=== PATIENT | female | born 1945 | race Caucasian/White ===

== ENCOUNTER 2016-12-22 19:34 | Inpatient (IN) | payer MEDICARE, OTHER ==
[~2016-12-22] VITALS: Ht 165.1 cm; Wt 56.4 kg
[~2016-12-22 19:34] MED LIST: ADVAIR 500-501 EACH INH; BUSPIRONE HCL5 MG PO; CELEXA20 MG PO; DEXILANT30 MG PO; ELAVIL25 MG PO; FLAGYL500 MG PO; GLUCOPHAGE500 MG PO; HYDROCODON-ACE1 EAC2 PO; LEVAQUIN500 MG PO; LIPITOR10 MG PO; MAGNESIUM OXID400 MG PO; MELOXICAM15 MG PO; NEURONTIN600 MG PO; NICODERM 21MG PA1 EA TD; SEROQUEL50 MG PO; SYNTHROID25 MCG PO
[2016-12-22 21:35] LABS: BASO % 0.3 % (0.1-1.2); EOS % 0.5 % (0.7-5.8); GRAN # 3.7 10_X3_uL (1.6-6.1); HEMATOCRIT 30.7 % (34-45); HEMOGLOBIN 10.3 g/dL (11.2-15.7); LYMPH # 0.2 10_X3_uL (1.2-3.7); LYMPH % 5.9 % (19.3-51.7); MEAN CORPUSCULAR HEMOGLOBIN 30.2 pg (27.0-33.0); MEAN CORPUSCULAR HGB CONC 33.6 g/dL (32.0-36.0); MEAN PLATELET VOLUME 10.2 fl (7.5-11.5); MONO % 0.3 % (4.7-12.5); PLATELET COUNT 95 x10_3/uL (182-369); RED BLOOD COUNT 3.41 x10_6/uL (3.9-5.2); RED CELL DISTRIBUTION WIDTH 19.1 % (11.7-14.4); WHITE BLOOD COUNT 3.9 x10_3/uL (4.0-10.0)
[2016-12-22 21:54] LABS: ALBUMIN 3.2 gm/dL (3.4-5.0); ALKALINE PHOSPHATASE 60 U/L (50-136); ALT/SGPT 14 U/L (3.5-33.9); AST/SGOT 9 U/L (7.04-26.96); BLOOD UREA NITROGEN 27 mg/dL (7-18); CALCIUM 8.3 mg/dL (8.7-10.7); CARBON DIOXIDE 23 mmol/L (21-32); CREATININE 0.7 mg/dL (0.6-1.3); GLUCOSE,RANDOM 224 mg/dL (70-99); SODIUM 133 mmol/L (136-145); TOTAL PROTEIN 5.5 gm/dL (6.4-8.2)
[2016-12-23 00:13] LABS: URINE BILIRUBIN NEGATIVE (NEGATIVE); URINE BLOOD NEGATIVE (NEGATIVE); URINE GLUCOSE (UA) 100 mg/dL (NORMAL); URINE KETONE NEGATIVE (NEGATIVE); URINE LEUKOCYTE ESTERASE TRACE (NEGATIVE); URINE NITRATE NEGATIVE (NEGATIVE); URINE PROTEIN 1+ (NEGATIVE); UROBILINOGEN NORMAL mg/dL (<1.0)
[2016-12-23 00:21] LABS: URINE RBC 0-5 /[HPF] (0-2); URINE WBC 0-5 /[HPF] (0-5)
[2016-12-23 04:41] LABS: BASO % 0.4 % (0.1-1.2); EOS % 1.5 % (0.7-5.8); GRAN # 2.4 10_X3_uL (1.6-6.1); GRAN % 86.4 % (34.0-71.1); HEMATOCRIT 27.4 % (34-45); HEMOGLOBIN 9.1 g/dL (11.2-15.7); LYMPH # 0.3 10_X3_uL (1.2-3.7); LYMPH % 11.3 % (19.3-51.7); MEAN CORPUSCULAR HEMOGLOBIN 29.8 pg (27.0-33.0); MEAN CORPUSCULAR HGB CONC 33.2 g/dL (32.0-36.0); MEAN CORPUSCULAR VOLUME 89.8 fL (79-95); MEAN PLATELET VOLUME 10.2 fl (7.5-11.5); MONO % 0.4 % (4.7-12.5); PLATELET COUNT 80 x10_3/uL (182-369); RED BLOOD COUNT 3.05 x10_6/uL (3.9-5.2); RED CELL DISTRIBUTION WIDTH 19.2 % (11.7-14.4); WHITE BLOOD COUNT 2.8 x10_3/uL (4.0-10.0)
[2016-12-23 04:53] LABS: CALCIUM 8.3 mg/dL (8.7-10.7); CARBON DIOXIDE 23 mmol/L (21-32); CREATININE 0.5 mg/dL (0.6-1.3); GLUCOSE,RANDOM 165 mg/dL (70-99); POTASSIUM 4.2 mmol/L (3.5-5.1); SODIUM 139 mmol/L (136-145)
[2016-12-23 04:56] LABS: BLOOD UREA NITROGEN 20 mg/dL (7-18)
[2016-12-24 06:37] LABS: BLOOD UREA NITROGEN 17 mg/dL (7-18); CALCIUM 8.4 mg/dL (8.7-10.7); CARBON DIOXIDE 23 mmol/L (21-32); CREATININE 0.6 mg/dL (0.6-1.3); GLUCOSE,RANDOM 134 mg/dL (70-99); SODIUM 138 mmol/L (136-145)
[2016-12-24 06:44] LABS: POTASSIUM 4.1 mmol/L (3.5-5.1)
[2016-12-24 06:48] LABS: HEMATOCRIT 27.3 % (34-45); HEMOGLOBIN 9.1 g/dL (11.2-15.7); MEAN CORPUSCULAR HEMOGLOBIN 30.2 pg (27.0-33.0); MEAN CORPUSCULAR HGB CONC 33.3 g/dL (32.0-36.0); MEAN CORPUSCULAR VOLUME 90.7 fL (79-95); MEAN PLATELET VOLUME 10.4 fl (7.5-11.5); PLATELET COUNT 45 x10_3/uL (182-369); RED BLOOD COUNT 3.01 x10_6/uL (3.9-5.2)
[2016-12-24 06:58] LABS: WHITE BLOOD COUNT < 1.0 x10_3/uL (4.0-10.0)
[2016-12-24 12:35] LABS: FOLATE 10.01 ng/mL (3.17-24.25)
[2016-12-24 13:15] LABS: URINE BILIRUBIN NEGATIVE (NEGATIVE); URINE BLOOD NEGATIVE (NEGATIVE); URINE GLUCOSE (UA) NORMAL (NORMAL); URINE KETONE NEGATIVE (NEGATIVE); URINE LEUKOCYTE ESTERASE NEGATIVE (NEGATIVE); URINE NITRATE NEGATIVE (NEGATIVE); URINE PROTEIN TRACE (NEGATIVE); UROBILINOGEN NORMAL mg/dL (<1.0)
[2016-12-24 13:37] LABS: URINE BACTERIA TRACE (NONE SEEN); URINE SQUAMOUS EPITHELIAL CELL 0-10 /[HPF] (NONE SEEN); URINE WBC 0-5 /[HPF] (0-5)
[2016-12-25 06:49] LABS: EOS % 4.8 % (0.7-5.8); GRAN % 9.4 % (34.0-71.1); HEMATOCRIT 24.5 % (34-45); HEMOGLOBIN 8.1 g/dL (11.2-15.7); LYMPH # 0.2 10_X3_uL (1.2-3.7); MEAN CORPUSCULAR HEMOGLOBIN 29.5 pg (27.0-33.0); MEAN CORPUSCULAR HGB CONC 33.1 g/dL (32.0-36.0); MEAN CORPUSCULAR VOLUME 89.1 fL (79-95); MEAN PLATELET VOLUME 10.5 fl (7.5-11.5); MONO % 4.8 % (4.7-12.5); RED BLOOD COUNT 2.75 x10_6/uL (3.9-5.2); RED CELL DISTRIBUTION WIDTH 18.5 % (11.7-14.4)
[2016-12-25 07:10] LABS: BLOOD UREA NITROGEN 15 mg/dL (7-18); CALCIUM 8.2 mg/dL (8.7-10.7); CARBON DIOXIDE 20 mmol/L (21-32); CREATININE 0.6 mg/dL (0.6-1.3); GLUCOSE,RANDOM 176 mg/dL (70-99); POTASSIUM 4.3 mmol/L (3.5-5.1); SODIUM 134 mmol/L (136-145)
[2016-12-25 07:38] LABS: WHITE BLOOD COUNT < 1.0 x10_3/uL (4.0-10.0)
[2016-12-25 07:42] LABS: PLATELET COUNT 22 x10_3/uL (182-369)
== END 2016-12-25 12:25 | disposition short-term general hospital (02) | DRG 871 ==
LOC: ER 19:34 → MS 12-23 01:32
PROVIDERS: Emergency Medicine; Family Medicine; ADMIT Family Medicine
DX: A41.9 Sepsis, unspecified organism (principal); J18.9 Pneumonia, unspecified organism; J44.0 Chronic obstructive pulmonary disease with (acute) lower respiratory infection; D61.818 Other pancytopenia; E87.6 Hypokalemia; E86.0 Dehydration; I95.9 Hypotension, unspecified; Z85.118 Personal history of other malignant neoplasm of bronchus and lung; Z90.2 Acquired absence of lung [part of]; D70.9 Neutropenia, unspecified; D72.829 Elevated white blood cell count, unspecified; R53.1 Weakness; R11.0 Nausea; R06.02 Shortness of breath; Z79.891 Long term (current) use of opiate analgesic; Z79.899 Other long term (current) drug therapy; Z88.0 Allergy status to penicillin; Z88.1 Allergy status to other antibiotic agents; Z88.2 Allergy status to sulfonamides; F17.210 Nicotine dependence, cigarettes, uncomplicated; Z90.710 Acquired absence of both cervix and uterus; D89.9 Disorder involving the immune mechanism, unspecified
CPT/HCPCS: 36415; 71010; 71250; 80048; 80053; 80061; 81001; 82607; 82746; 82962; 83036; 83605; 85025; 86738; 87040; 87400; 87449; 94640; 94664; 96361; 96365; 99070; 99284; 99285-25; J7050

== ENCOUNTER → 2016-12-22 19:34 | Emergency (ER) | payer MEDICARE, OTHER | END | disposition other institution (70) | LOC: ER 19:34 | DX: I95.9 Hypotension, unspecified (principal); E86.0 Dehydration; D89.9 Disorder involving the immune mechanism, unspecified; R00.0 Tachycardia, unspecified; J44.9 Chronic obstructive pulmonary disease, unspecified; K21.9 Gastro-esophageal reflux disease without esophagitis; F32.9 Major depressive disorder, single episode, unspecified; F41.9 Anxiety disorder, unspecified; Z85.118 Personal history of other malignant neoplasm of bronchus and lung; Z90.2 Acquired absence of lung [part of]; F17.210 Nicotine dependence, cigarettes, uncomplicated; Z88.0 Allergy status to penicillin; Z88.2 Allergy status to sulfonamides; Z88.1 Allergy status to other antibiotic agents | CPT/HCPCS: 36415; 71010; 80053; 83605; 85025; 96361; 96365; 99284; 99285-25 ==

== ENCOUNTER 2017-01-03 10:08 | Emergency (ER) | payer MEDICARE, OTHER ==
[2017-01-03 12:11] LABS: BASO % 0.3 % (0.1-1.2); EOS % 0.1 % (0.7-5.8); GRAN # 5.6 10_X3_uL (1.6-6.1); GRAN % 78.5 % (34.0-71.1); HEMATOCRIT 24.4 % (34-45); LYMPH # 0.7 10_X3_uL (1.2-3.7); LYMPH % 9.6 % (19.3-51.7); MEAN CORPUSCULAR HEMOGLOBIN 29.7 pg (27.0-33.0); MEAN CORPUSCULAR HGB CONC 32.8 g/dL (32.0-36.0); MEAN CORPUSCULAR VOLUME 90.7 fL (79-95); MEAN PLATELET VOLUME 10.8 fl (7.5-11.5); MONO # 0.8 10_X3_uL (0.2-0.9); MONO % 11.5 % (4.7-12.5); PLATELET COUNT 82 x10_3/uL (182-369); RED BLOOD COUNT 2.69 x10_6/uL (3.9-5.2); RED CELL DISTRIBUTION WIDTH 19.2 % (11.7-14.4); WHITE BLOOD COUNT 7.1 x10_3/uL (4.0-10.0)
[2017-01-03 12:21] LABS: ALBUMIN 2.5 gm/dL (3.4-5.0); ALKALINE PHOSPHATASE 83 U/L (50-136); ALT/SGPT 13 U/L (3.5-33.9); AST/SGOT 9 U/L (7.04-26.96); BLOOD UREA NITROGEN 14 mg/dL (7-18); CALCIUM 7.6 mg/dL (8.7-10.7); CARBON DIOXIDE 24 mmol/L (21-32); CREATININE 0.6 mg/dL (0.6-1.3); GLUCOSE,RANDOM 203 mg/dL (70-99); POTASSIUM 3.8 mmol/L (3.5-5.1); SODIUM 140 mmol/L (136-145)
[2017-01-03 12:25] LABS: BILIRUBIN,TOTAL < 0.15 mg/dL (0.0-1.0)
== END 2017-01-03 13:47 | disposition home or self-care (01) ==
LOC: ER 10:08
PROVIDERS: Emergency Medicine
DX: C34.90 Malignant neoplasm of unspecified part of unspecified bronchus or lung (principal); D63.0 Anemia in neoplastic disease; E86.0 Dehydration; J44.9 Chronic obstructive pulmonary disease, unspecified; I10 Essential (primary) hypertension; Z90.710 Acquired absence of both cervix and uterus; Z90.2 Acquired absence of lung [part of]; E89.0 Postprocedural hypothyroidism; F17.210 Nicotine dependence, cigarettes, uncomplicated; Z79.899 Other long term (current) drug therapy; Z88.0 Allergy status to penicillin; Z88.1 Allergy status to other antibiotic agents; Z88.2 Allergy status to sulfonamides
CPT/HCPCS: 36415; 80053; 85025; 96360; 99070; 99284; 99285-25

== ENCOUNTER 2017-02-09 10:35 | Inpatient (IN) | payer MEDICARE, OTHER ==
[~2017-02-09] VITALS: Ht 165.1 cm; Wt 57.0 kg
[2017-02-09 11:47] LABS: BASO % 0.3 % (0.1-1.2); EOS # 0.2 10_X3_uL (0.0-0.4); EOS % 1.8 % (0.7-5.8); GRAN # 7.9 10_X3_uL (1.6-6.1); GRAN % 75.5 % (34.0-71.1); HEMATOCRIT 38.8 % (34-45); HEMOGLOBIN 12.9 g/dL (11.2-15.7); LYMPH # 1.2 10_X3_uL (1.2-3.7); LYMPH % 11.7 % (19.3-51.7); MEAN CORPUSCULAR HEMOGLOBIN 33.7 pg (27.0-33.0); MEAN CORPUSCULAR HGB CONC 33.2 g/dL (32.0-36.0); MEAN CORPUSCULAR VOLUME 101.3 fL (79-95); MEAN PLATELET VOLUME 9.7 fl (7.5-11.5); MONO # 1.1 10_X3_uL (0.2-0.9); MONO % 10.7 % (4.7-12.5); PLATELET COUNT 254 x10_3/uL (182-369); RED BLOOD COUNT 3.83 x10_6/uL (3.9-5.2); RED CELL DISTRIBUTION WIDTH 15.9 % (11.7-14.4); WHITE BLOOD COUNT 10.5 x10_3/uL (4.0-10.0)
[2017-02-09 12:03] LABS: ALKALINE PHOSPHATASE 60 U/L (50-136); ALT/SGPT 17 U/L (3.5-33.9); AST/SGOT 15 U/L (7.04-26.96); BILIRUBIN,TOTAL 0.24 mg/dL (0.0-1.0); BLOOD UREA NITROGEN 10 mg/dL (7-18); CALCIUM 9.6 mg/dL (8.7-10.7); CARBON DIOXIDE 24 mmol/L (21-32); CREATININE 0.5 mg/dL (0.6-1.3); GLUCOSE,RANDOM 141 mg/dL (70-99); POTASSIUM 3.8 mmol/L (3.5-5.1); SODIUM 141 mmol/L (136-145); TOTAL PROTEIN 7.1 gm/dL (6.4-8.2)
[2017-02-10 07:06] LABS: BASO % 0.4 % (0.1-1.2); EOS # 0.2 10_X3_uL (0.0-0.4); EOS % 3.3 % (0.7-5.8); GRAN # 4.4 10_X3_uL (1.6-6.1); GRAN % 64.7 % (34.0-71.1); HEMATOCRIT 36.3 % (34-45); HEMOGLOBIN 12.1 g/dL (11.2-15.7); LYMPH % 15.5 % (19.3-51.7); MEAN CORPUSCULAR HEMOGLOBIN 33.9 pg (27.0-33.0); MEAN CORPUSCULAR HGB CONC 33.3 g/dL (32.0-36.0); MEAN CORPUSCULAR VOLUME 101.7 fL (79-95); MEAN PLATELET VOLUME 9.8 fl (7.5-11.5); MONO # 1.1 10_X3_uL (0.2-0.9); MONO % 16.1 % (4.7-12.5); PLATELET COUNT 236 x10_3/uL (182-369); RED BLOOD COUNT 3.57 x10_6/uL (3.9-5.2); WHITE BLOOD COUNT 6.7 x10_3/uL (4.0-10.0)
[2017-02-10 07:19] LABS: BLOOD UREA NITROGEN 12 mg/dL (7-18); CALCIUM 9.6 mg/dL (8.7-10.7); CARBON DIOXIDE 25 mmol/L (21-32); CREATININE 0.5 mg/dL (0.6-1.3); GLUCOSE,RANDOM 126 mg/dL (70-99); POTASSIUM 4.3 mmol/L (3.5-5.1); SODIUM 141 mmol/L (136-145)
[2017-02-11 07:17] LABS: HEMATOCRIT 32.6 % (34-45); HEMOGLOBIN 10.8 g/dL (11.2-15.7); MEAN CORPUSCULAR HEMOGLOBIN 32.3 pg (27.0-33.0); MEAN CORPUSCULAR HGB CONC 33.1 g/dL (32.0-36.0); MEAN CORPUSCULAR VOLUME 97.6 fL (79-95); MEAN PLATELET VOLUME 9.7 fl (7.5-11.5); RED BLOOD COUNT 3.34 x10_6/uL (3.9-5.2); RED CELL DISTRIBUTION WIDTH 15.9 % (11.7-14.4); WHITE BLOOD COUNT 6.2 x10_3/uL (4.0-10.0)
[2017-02-11 07:28] LABS: BLOOD UREA NITROGEN 12 mg/dL (7-18); CALCIUM 9.1 mg/dL (8.7-10.7); CARBON DIOXIDE 28 mmol/L (21-32); CREATININE 0.5 mg/dL (0.6-1.3); GLUCOSE,RANDOM 109 mg/dL (70-99); POTASSIUM 4.2 mmol/L (3.5-5.1); SODIUM 143 mmol/L (136-145)
[2017-02-12 06:33] LABS: HEMOGLOBIN 10.9 g/dL (11.2-15.7); MEAN CORPUSCULAR HEMOGLOBIN 32.8 pg (27.0-33.0); MEAN CORPUSCULAR HGB CONC 32.1 g/dL (32.0-36.0); MEAN CORPUSCULAR VOLUME 102.4 fL (79-95); MEAN PLATELET VOLUME 9.9 fl (7.5-11.5); RED BLOOD COUNT 3.32 x10_6/uL (3.9-5.2); RED CELL DISTRIBUTION WIDTH 15.3 % (11.7-14.4); WHITE BLOOD COUNT 6.7 x10_3/uL (4.0-10.0)
[2017-02-12 06:42] LABS: BLOOD UREA NITROGEN 12 mg/dL (7-18); CARBON DIOXIDE 25 mmol/L (21-32); CREATININE 0.6 mg/dL (0.6-1.3); GLUCOSE,RANDOM 155 mg/dL (70-99); POTASSIUM 4.2 mmol/L (3.5-5.1); SODIUM 141 mmol/L (136-145)
== END 2017-02-13 10:33 | disposition home or self-care (01) | DRG 190 ==
LOC: ER 10:35 → MS 15:04 → UNDODEPER 02-11 12:27 → MS 02-13 10:33
PROVIDERS: Emergency Medicine; ADMIT Family Medicine
DX: J44.0 Chronic obstructive pulmonary disease with (acute) lower respiratory infection (principal); J18.0 Bronchopneumonia, unspecified organism; J44.1 Chronic obstructive pulmonary disease with (acute) exacerbation; Z85.118 Personal history of other malignant neoplasm of bronchus and lung; Z90.2 Acquired absence of lung [part of]; E11.9 Type 2 diabetes mellitus without complications; J98.01 Acute bronchospasm; R91.1 Solitary pulmonary nodule; E03.9 Hypothyroidism, unspecified; R10.9 Unspecified abdominal pain; F17.210 Nicotine dependence, cigarettes, uncomplicated; Z88.0 Allergy status to penicillin; Z88.1 Allergy status to other antibiotic agents; Z88.2 Allergy status to sulfonamides; Z90.710 Acquired absence of both cervix and uterus; Z79.891 Long term (current) use of opiate analgesic; Z79.899 Other long term (current) drug therapy; Z79.84 Long term (current) use of oral hypoglycemic drugs
CPT/HCPCS: 36415; 71250; 80048; 80053; 80061; 82962; 83036; 83880; 85025; 86738; 87040; 87070; 87205; 87449; 94640; 94664; 96365; 96366; 96367; 99070; 99284; 99285-25; J2930; J7050

== ENCOUNTER 2017-02-09 10:35 | Emergency (ER) | payer MEDICARE, OTHER | END 2017-02-09 15:04 | disposition other institution (70) | LOC: ER 10:35 | DX: J44.0 Chronic obstructive pulmonary disease with (acute) lower respiratory infection (principal); J18.9 Pneumonia, unspecified organism; E03.9 Hypothyroidism, unspecified; Z85.118 Personal history of other malignant neoplasm of bronchus and lung; Z90.710 Acquired absence of both cervix and uterus; F17.210 Nicotine dependence, cigarettes, uncomplicated; E11.9 Type 2 diabetes mellitus without complications; Z79.84 Long term (current) use of oral hypoglycemic drugs; Z79.891 Long term (current) use of opiate analgesic; Z79.899 Other long term (current) drug therapy; Z99.81 Dependence on supplemental oxygen | CPT/HCPCS: 99284; 99285-25 ==

== ENCOUNTER 2017-02-21 13:48 | Emergency (ER) | payer MEDICARE, OTHER ==
[2017-02-21 16:18] LABS: BASO % 0.2 % (0.1-1.2); EOS % 0.1 % (0.7-5.8); GRAN # 11.8 10_X3_uL (1.6-6.1); GRAN % 85.3 % (34.0-71.1); HEMATOCRIT 40.8 % (34-45); HEMOGLOBIN 13.8 g/dL (11.2-15.7); LYMPH % 6.9 % (19.3-51.7); MEAN CORPUSCULAR HEMOGLOBIN 32.9 pg (27.0-33.0); MEAN CORPUSCULAR HGB CONC 33.8 g/dL (32.0-36.0); MEAN CORPUSCULAR VOLUME 97.1 fL (79-95); MEAN PLATELET VOLUME 9.8 fl (7.5-11.5); MONO % 7.5 % (4.7-12.5); PLATELET COUNT 295 x10_3/uL (182-369); RED CELL DISTRIBUTION WIDTH 14.4 % (11.7-14.4); WHITE BLOOD COUNT 13.8 x10_3/uL (4.0-10.0)
[2017-02-21 16:34] LABS: ALBUMIN 3.8 gm/dL (3.4-5.0); ALKALINE PHOSPHATASE 54 U/L (50-136); ALT/SGPT 17 U/L (3.5-33.9); AST/SGOT 11 U/L (7.04-26.96); BILIRUBIN,TOTAL 0.16 mg/dL (0.0-1.0); BLOOD UREA NITROGEN 21 mg/dL (7-18); CALCIUM 9.4 mg/dL (8.7-10.7); CARBON DIOXIDE 21 mmol/L (21-32); CREATININE 0.7 mg/dL (0.6-1.3); GLUCOSE,RANDOM 254 mg/dL (70-99); POTASSIUM 3.5 mmol/L (3.5-5.1); SODIUM 136 mmol/L (136-145); TOTAL PROTEIN 6.2 gm/dL (6.4-8.2)
== END 2017-02-21 19:29 | disposition home or self-care (01) ==
LOC: ER 13:48
PROVIDERS: Emergency Medicine
DX: E86.0 Dehydration (principal); M54.5 Low back pain; E11.9 Type 2 diabetes mellitus without complications; J44.9 Chronic obstructive pulmonary disease, unspecified; I10 Essential (primary) hypertension; Z85.118 Personal history of other malignant neoplasm of bronchus and lung; E03.9 Hypothyroidism, unspecified; Z92.21 Personal history of antineoplastic chemotherapy; Z90.2 Acquired absence of lung [part of]; F17.210 Nicotine dependence, cigarettes, uncomplicated; Z79.899 Other long term (current) drug therapy; Z79.84 Long term (current) use of oral hypoglycemic drugs; Z88.1 Allergy status to other antibiotic agents; Z88.0 Allergy status to penicillin; Z88.2 Allergy status to sulfonamides; R53.1 Weakness
CPT/HCPCS: 36415; 70450; 80053; 85025; 96360; 99070; 99284; 99285-25